=== PATIENT | male | born 1975 | race Caucasian/White ===

== ENCOUNTER 2020-09-29 21:05 | Emergency (ER) | payer SELFPAY ==
[~2020-09-29] VITALS: Ht 170.2 cm; Wt 136.0 kg
[2020-09-29] MEDS ORDERED: FUROSEMIDE 40 MG TABLET. PO ONE (23:00)
[2020-09-29 23:18] LABS: CALCIUM 8.1 mg/dL (8.5-10.1); GFR 80.4; POTASSIUM 4.3 mmol/L (3.5-5.1)
[2020-09-29] MEDS ORDERED: FURO-69 PO (23:26)
--- NOTE | 2020-09-29 23:26 | PHYS DOC ---
Past Medical History Past Medical History: GERD, Other Additional Past Medical Histor: sleep apnea Past Surgical History: Other Additional Past Surgical Histo: ear surgery as a child Smoking Status: Current Every Day Smoker Additional Information: 0.5ppd Alcohol Use: None Social History Narrative: meth use one week ago General Adult EDM: Chief Complaint: LOWER EXTREMITY EDEMA HPI: HPI: Patient is a 45yo male presenting for bilateral LE swelling. This is an acute on chronic problem. This has happened to him in the past, reports visitng a local ER and was discharged home. He has no PCP, no known medical illnesses, does not take any meds on a daily basis. States he noticed this episode of edema ~1 week ago. "It's actually a lot better now that it was a few days ago". Nothing known makes better or worse. Patient reports drinking more water because it's been hotter outside but has been mindful of salt intake. 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 No paroxysmal dyspnea, cp, shob or other concerning findings. Review of Systems: Review of Systems: Fourteen body systems of review of systems have been reviewed. See HPI for pertinent positives and negative responses, other eng all other systems are negative, non-pertinent or non-contributory Heart Score: C/O Chest Pain: No HEART Score for Chest Pain: HEART Score for Chest Pain Response (Comments) Value History Slighlty/Non-Suspicious 0 Age >45 - < 65 1 Risk Factors 1 or 2 Risk Factors 1 Total 2 Risk Factors: Risk Factors: DM, Current or recent (<one month) smoker, HTN, HLP, family history of CAD, obesity. Risk Scores: Score 0 - 3: 2.5% MACE over next 6 weeks - Discharge Home Score 4 - 6: 20.3% MACE over next 6 weeks - Admit for Clinical Observation Score 7 - 10: 72.7% MACE over next 6 weeks - Early Invasive Strategies Current Medications: Current Medications Medications (Trade) Dose Ordered Sig/Annabel Start Time Stop Time Status Last Admin Dose Admin Furosemide (Lasix) 20 mg 1X ONCE 09/29/20 23:00 09/29/20 23:01 DC 09/29/20 22:39 20 MG Allergies: Allergies: Allergies Coded Allergies Type Severity Reaction Last Updated Verified No Known Drug Allergies 09/29/20 No Physical Exam: PE: Constitutional: Well developed, well nourished, obese, no acute distress, non- toxic appearance. HENT: Normocephalic, atraumatic, bilateral external ears normal, oropharynx moist, no oral exudates, nose normal. Eyes: PERRLA, EOMI, conjunctiva normal, no discharge. Neck: Normal range of motion, no tenderness, supple, no stridor. Cardiovascular: Heart rate regular, sinus rhythm, no murmurs rubs or gallops, no dyspnea when placed completely supine Lungs & Thorax: Bilateral breath sounds clear to auscultation Abdomen: Bowel sounds normal, soft, no tenderness, no masses, no pulsatile masses. Nonsurgical abdomen, no peritoneal signs Skin: Warm, dry, no erythema, no rash. Back: No tenderness, no CVA tenderness. Extremities: No tenderness, no cyanosis, no clubbing, ROM intact, large legs bilaterally with trace edema present, no bill sign, no signs of dvt/infection Neurologic: Alert and oriented X 3, grossly normal motor & sensory function, no focal deficits noted. Psychologic: Affect normal, judgement normal, mood normal. Current Patient Data: Labs: Laboratory Tests Test 09/29/20 22:55 Sodium Level 141 mmol/L (136-145) Potassium Level 4.3 mmol/L (3.5-5.1) Chloride Level 107 mmol/L (98-107) Carbon Dioxide Level 27 mmol/L (21-32) Anion Gap 7 (6-14) Blood Urea Nitrogen 13 mg/dL (8-26) Creatinine 1.0 mg/dL (0.7-1.3) Estimated GFR (Cockcroft-Gault) 80.4 Glucose Level 106 mg/dL (70-99) H Calcium Level 8.1 mg/dL (8.5-10.1) L Laboratory Tests 09/29/20 22:55 Vital Signs: Vital Signs Date Time Temp Pulse Resp B/P (MAP) Pulse Ox O2 Delivery O2 Flow Rate FiO2 09/29/20 21:40 97.6 93 13 141/74 (96) 99 97.6 EKG: EKG: [] Radiology/Procedures: Radiology/Procedures: [] Course & Med Decision Making: Course & Med Decision Making ER workup discussed, likely transient fluid retention for increased PO intake. Patient advised to use RX Lasix PRN and utilize compression stockings daily Stressed need to follow-up with PCP. It is unlikely new onset CHF; however, with patient's history of meth use, age and weight, it would be best for him to follow-up for continuity of care Strict return precautions discussed with good understanding, all questions and concerns addressed prior to departure Kathleen Disclaimer: Kathleen Disclaimer: This electronic medical record was generated, in whole or in part, using a voice recognition dictation system. Departure Departure Impression: Primary Impression: Leg edema Disposition: 01 DC HOME SELF CARE/HOMELESS Condition: STABLE Referrals: NO PCP (PCP) Patient Instructions: Edema Additional Instructions: As discussed, you have lower extremity swelling. Causes of this might be due to increased fluid intake or salt consumption. With that said, since this has happened to you in the past and you did not follow-up in outpatient setting, I cannot stress enough the importance of you establishing with a local primary care provider for continuity of care. Please utilize Lasix prescription which is a diuretic medication that will make you pee and hopefully improve your lower extremity swelling. Start wearing compression socks and implement lifestyle changes that were discussed prior to your departure. Any concerning signs or symptoms present prior to outpatient follow-up please do not hesitate to come back for repeat evaluation. It was a pleasure to take care of you and I wish you the best going Scripts Furosemide (LASIX) 20 Mg Tablet 1 TAB PO DAILY for 14 Days, #14 TAB 0 Refills Prov: KWAKU LAKHANI DO 09/29/20 KWAKU LAKHANI DO Sep 29, 2020 23:26
[2020-09-29 23:39] VITALS: BP 131/81
== END 2020-09-30 00:20 | disposition home or self-care (01) ==
LOC: ER 21:05
DX: K21.9 Gastro-esophageal reflux disease without esophagitis (principal); F17.200 Nicotine dependence, unspecified, uncomplicated; F19.90 Other psychoactive substance use, unspecified, uncomplicated; Z98.890 Other specified postprocedural states
CPT/HCPCS: 36415; 80048; 99285